=== PATIENT | female | born 1965 | race Caucasian/White ===

== ENCOUNTER → 2019-12-17 | Outpatient (CLI) | payer BC | LOC: LAB 11:41 | PROVIDERS: ATTEND Nurse Practitioner | DX: Z20.828 Contact with and (suspected) exposure to other viral communicable diseases (principal) ==

== ENCOUNTER → 2019-12-21 | Outpatient (CLI) | payer BC | LOC: LAB 09:14 | PROVIDERS: ATTEND Family Medicine | DX: R68.83 Chills (without fever) (principal); R51.9 Headache, unspecified; R11.0 Nausea; Z20.828 Contact with and (suspected) exposure to other viral communicable diseases ==